=== PATIENT | male | born 1990 | race Caucasian/White ===

== ENCOUNTER 2018-09-17 08:50 | Emergency (ER) | payer SELFPAY ==
[2018-09-17] MEDS ORDERED: NORMAL SALINE 1000 ML 1,000 ML IV ONE (09:28)
--- NOTE | 2018-09-17 09:31 | ER Document Report ---
ED Medical Screen (RME) - General Chief Complaint: Abdominal Pain Stated Complaint: ANDOMINAL/PELVIC PAIN Time Seen by Provider: 09/17/18 09:26 TRAVEL OUTSIDE OF THE [place] IN LAST 30 DAYS: No - HPI Notes: 09/17/18 09:30 Obese male coming in with a history of diverticulitis states last flare 2 years ago today's symptoms similar - Related Data Allergies/Adverse Reactions: desvenlafaxine [From Pristiq] Allergy (Verified 09/17/18 08:52) quetiapine [From Seroquel] Allergy (Verified 09/17/18 08:52) Past Medical History - Social History Chew tobacco use (# tins/day): No Frequency of alcohol use: Occasional Drug Abuse: None Renal/ Medical History: Denies: Hx Peritoneal Dialysis Review of Systems - Review of Systems Gastrointestinal: Abdominal pain Physical Exam - Vital signs Vitals: Temp Pulse Resp BP Pulse Ox 98.7 F 93 18 166/100 H 97 09/17/18 08:57 09/17/18 08:57 09/17/18 08:57 09/17/18 08:57 09/17/18 08:57 - Respiratory Respiratory status: No respiratory distress Chest status: Nontender Breath sounds: Normal Chest palpation: Normal - Abdominal Inspection: Obese Course - Vital Signs Vital signs: Temp Pulse Resp BP Pulse Ox 98.7 F 93 18 166/100 H 97 09/17/18 08:57 09/17/18 08:57 09/17/18 08:57 09/17/18 08:57 09/17/18 08:57
[2018-09-17 10:05] LABS: ABSOLUTE BASOPHILS # (AUTO) 0.1 10^3/uL (0.0-0.2); ABSOLUTE EOSINOPHILS # (AUTO) 0.2 10^3/uL (0.0-0.6); ABSOLUTE LYMPHOCYTES (AUTO) 2.4 10^3/uL (0.5-4.7); ABSOLUTE NEUT (AUTO) 8.4 10^3/uL (1.7-8.2); BASOPHILS % (AUTO) 0.5 % (0-2); EOSINOPHILS % (AUTO) 1.9 % (0-6); HEMATOCRIT 45.5 % (37.9-51.0); HEMOGLOBIN 15.8 g/dL (13.5-17.0); MEAN CORPUSCULAR HEMOGLOBIN 30.8 pg (27.0-33.4); MEAN CORPUSCULAR HGB CONC 34.7 g/dL (32.0-36.0); MEAN CORPUSCULAR VOLUME 89 fl (80-97); MONOCYTES % (AUTO) 8.3 % (3-13); PLATELET COUNT 288 10^3/uL (150-450); RED BLOOD COUNT 5.13 10^6/uL (4.35-5.55); RED CELL DISTRIBUTION WIDTH 13.4 % (11.5-14.0); SEGMENTED NEUTROPHILS % (AUTO) 69.3 % (42-78); TOTAL CELLS COUNTED % (AUTO) 100 %; WHITE BLOOD COUNT 12.1 10^3/uL (4.0-10.5)
[2018-09-17 10:18] LABS: APPEARANCE,URINE SLIGHTLY-CLOUDY; BILIRUBIN,URINE NEGATIVE (NEGATIVE); COLOR,URINE YELLOW; GLUCOSE, URINE NEGATIVE (NEGATIVE); KETONES,URINE NEGATIVE (NEGATIVE); LEUKOCYTE ESTERASE,URINE SMALL (NEGATIVE); NITRITE,URINE NEGATIVE (NEGATIVE); PROTEIN,URINE NEGATIVE (NEGATIVE)
[2018-09-17] MEDS ORDERED: FENTANYL CITRATE INJ/PF 100 MCG/2 ML AMPUL IV ONE (10:23)
[2018-09-17] MEDS ORDERED: CIPROFLOXACIN 400 MG/D5W RTU 400 MG/200 ML RTUPB IV ONE (10:23)
[2018-09-17 10:25] LABS: ALANINE AMINOTRANSFERASE 20 U/L (21-72); ALBUMIN 4.1 g/dL (3.5-5.0); ALKALINE PHOSPHATASE 79 U/L (38-126); ANION GAP 9 (5-19); ASPARTATE AMINO TRANSFERASE 15 U/L (17-59); BILIRUBIN,DIRECT 0.2 mg/dL (0.0-0.4); BILIRUBIN,TOTAL 0.7 mg/dL (0.2-1.3); BLOOD UREA NITROGEN 9 mg/dL (7-20); CALCIUM 9.2 mg/dL (8.4-10.2); CARBON DIOXIDE 25 mmol/L (22-30); CHLORIDE 106 mmol/L (98-107); GLUCOSE 111 mg/dL (75-110); LIPASE 40.4 U/L (23-300); POTASSIUM 4.5 mmol/L (3.6-5.0); SODIUM 139.8 mmol/L (137-145); TOTAL PROTEIN 7.5 g/dL (6.3-8.2)
--- NOTE | 2018-09-17 10:29 | ER Document Report ---
ED General - General Chief Complaint: Abdominal Pain Stated Complaint: ABDOMINAL/PELVIC PAIN Time Seen by Provider: 09/17/18 09:26 Mode of Arrival: Ambulatory Information source: Patient TRAVEL OUTSIDE OF THE [place] IN LAST 30 DAYS: No - HPI Patient complains to provider of: abdominal pain Onset: Other - 28-year-old man with a past medical history significant for diverticulitis 3 times as well as atrial fibrillation for which he was treated via shock and subsequent rate regulation. Is not on any blood thinning medication currently presents for 2 days of abdominal pain in his left lower quadrant that he believes is her result of diverticulitis. His previous episode of diverticulitis requiring to be hospitalized for 3 days because he was febrile feeling much worse. He endorses some looser stools than usual without any blood, is going to the bathroom okay otherwise, has felt some nausea without any episodes of emesis. Nothing is seem to help with this pain, time seems to be making it worse. He just moved to the area so does not have any physician to help care for him locally. - Related Data Allergies/Adverse Reactions: desvenlafaxine [From Pristiq] Allergy (Verified 09/17/18 09:31) quetiapine [From Seroquel] Allergy (Verified 09/17/18 09:31) Past Medical History - General Information source: Patient - Social History Smoking Status: Current Every Day Smoker Chew tobacco use (# tins/day): No Frequency of alcohol use: Occasional Drug Abuse: None Family History: None Patient has suicidal ideation: No Patient has homicidal ideation: No - Past Medical History Cardiac Medical History: Reports: Hx Atrial Fibrillation Renal/ Medical History: Denies: Hx Peritoneal Dialysis Past Surgical History: Reports: Hx Appendectomy, Hx Cholecystectomy Review of Systems - Review of Systems -: Yes All other systems reviewed and negative Physical Exam - Vital signs Vitals: Temp Pulse Resp BP Pulse Ox 98.7 F 93 18 166/100 H 97 09/17/18 08:57 09/17/18 08:57 09/17/18 08:57 09/17/18 08:57 09/17/18 08:57 - General General appearance: Appears well In distress: None - HEENT Head: Normocephalic Eyes: Normal Conjunctiva: Normal Cornea: Normal Extraocular movements intact: Yes Eyelashes: Normal Pupils: PERRL - Respiratory Respiratory status: No respiratory distress Chest status: Nontender Breath sounds: Normal Chest palpation: Normal - Cardiovascular Rhythm: Regular Heart sounds: Normal auscultation Murmur: No - Abdominal Inspection: Normal Distension: No distension Tenderness: Rebound - Tenderness in the left lower quadrant with rebound - Back Back: Normal - Extremities General upper extremity: Normal inspection, Nontender, Normal strength, Normal temperature General lower extremity: Normal inspection, Nontender, Normal strength, Normal temperature - Neurological Neuro grossly intact: Yes Cognition: Normal Orientation: AAOx4 [place] Coma Scale Eye Opening: Spontaneous [place] Coma Scale Verbal: Oriented [place] Coma Scale Motor: Obeys Commands [place] Coma Scale Total: 15 Speech: Normal Cranial nerves: Normal Cerebellar coordination: Normal Motor strength normal: LUE, RUE, LLE, RLE - Psychological Associated symptoms: Normal affect Course - Re-evaluation Re-evalutation: 09/17/18 10:34 28-year-old man with a history of diverticulitis in the past presents for evaluation of pain in the left lower quadrant. He does have rebound, no obvious peritonitis though because of his morbid obesity his abdominal exam is somewhat limited. Through triage patient had blood work ordered and fluids initiated, will administer antibiotics as well as analgesia. We will plan for CT the abdomen and pelvis 09/17/18 12:10 On reassessment this patient's pain is improved, he is received antibiotics through the IV, he is able tolerate p.o. His abdominal examination demonstrates some tenderness but without any concerning symptoms suggestive of peritonitis. Current plan will be for this patient to move forward with discharge with oral antibiotics. He will follow-up and upon any worsening return to the emergency room. He is in agreement this current course of action at this time, says i not as bad as previously. - Vital Signs Vital signs: Temp Pulse Resp BP Pulse Ox 98.7 F 93 18 166/100 H 97 09/17/18 08:57 09/17/18 08:57 09/17/18 08:57 09/17/18 08:57 09/17/18 08:57 - Laboratory Result Diagrams: 09/17/18 09:52 09/17/18 09:52 Laboratory results interpreted by me: 09/17/18 09/17/18 09/17/18 09:52 09:52 09:52 WBC 12.1 H Absolute Neutrophils 8.4 H Glucose 111 H AST 15 L ALT 20 L Urine Urobilinogen 2.0 H Ur Leukocyte Esterase SMALL H Discharge - Discharge Clinical Impression: Diverticulitis Abdominal pain Qualifiers: Abdominal location: generalized Qualified Code(s): R10.84 - Generalized abdominal pain Condition: Good Disposition: HOME, SELF-CARE Instructions: Ciprofloxacin (OM), Diverticulitis (OM), Metronidazole (OM), Oral Narcotic Medication (OM) Prescriptions: Ciprofloxacin HCl [Cipro 500 mg Tablet] 500 mg PO BID #20 tablet Hydrocodone/Acetaminophen [[place] 5-325 mg Tablet] 1 tab PO Q12 PRN #15 tablet PRN Reason: Metronidazole [Flagyl 500 mg Tablet] 500 mg PO Q6H #40 tablet Forms: Elevated Blood Pressure
[2018-09-17] MEDS ORDERED: METRONIDAZOLE 500 MG/NS RTU 500 MG/100 ML RTUPB IV ONE (11:00)
--- NOTE | 2018-09-17 11:52 | RADIOLOGY REPORT (SQ) ---
EXAM DESCRIPTION: CT ABD/PELVIS WITH IV ONLY COMPLETED DATE/TIME: 09/17/2018 10:58 am REASON FOR STUDY: concern for perforated diverticula COMPARISON: None. TECHNIQUE: CT scan of the abdomen and pelvis performed using helical scanning technique with dynamic intravenous contrast injection. No oral contrast. Images reviewed with lung, soft tissue, and bone windows. Reconstructed coronal and sagittal MPR images reviewed. Delayed images for evaluation of the urinary system also acquired. All images stored on PACS. All CT scanners at this facility use dose modulation, iterative reconstruction, and/or weight based d osing when appropriate to reduce radiation dose to as low as reasonably achievable (ALARA). [facility]: Dose Right [facility]: CareDose [facility]: Dose Right [facility]: Teradose 4D [facility]: Conversant Labs CONTRAST TYPE AND DOSE: contrast/concentration: Isovue 350.00 mg/ml; Total Contrast Delivered: 100.0 ml; Total Saline Delivered: 72.0 ml RENAL FUNCTION: GFR > 60. RADIATION DOSE: CT Rad equipment meets quality standard of care and radiation dose reduction techniq ues were employed. CTDIvol: 21.1 - 30.0 mGy. DLP: 3150 mGy-cm.. LIMITATIONS: None. FINDINGS: Distal descending colon/proximal sigmoid colon diverticulitis is present, with a 5 cm long segment of colon wall thickening and luminal narrowing with surrounding inflammatory change in the a djacent pericolic fat. No abscess. No definite free intraperitoneal air. These changes are best sh own on coronal images 34-42, and axial images 72-79. Remainder of the gastrointestinal tract is otherwise unremarkable. LOWER CHEST: Small hiatal hernia. . No nodules or infiltrates. LIVER: Fatty liver. No masses. No dilated ducts SPLEEN: Normal size. No focal lesions. PANCREAS: No masses. No significant calcifications. No adjacent inflammation or peripancreatic fluid collections. Pancreatic duct not dilated. GALLBLADDER: Surgically absent ADRENAL GLANDS: No significant masses or asymmetry. RIGHT KIDNEY AND URETER: No solid masses. No significant calcifications. No hydronephrosis or hyd roureter. LEFT KIDNEY AND URETER: No solid masses. No significant calcifications. No hydronephrosis or hydr oureter. AORTA AND VESSELS: No aneurysm. No dissection. Renal arteries, SMA, celiac without stenosis. RETROPERITONEUM: No retroperitoneal adenopathy, hemorrhage or masses. BOWEL AND PERITONEAL CAVITY: As above APPENDIX: Surgically absent PELVIS: No mass. No free fluid. Normal bladder. ABDOMINAL WALL: No masses. No hernias. BONES: No significant or acute findings. OTHER: No other significant finding. IMPRESSION: Distal descending colon/proximal sigmoid colon diverticulitis is present. No abscess. No free intraperitoneal air or fluid TECHNICAL DOCUMENTATION: JOB ID: [id number] Quality ID # [id number]: Final reports with documentation of one or more dose reduction techniques (e.g., Au tomated exposure control, adjustment of the mA and/or kV according to patient size, use of iterative reconstruction technique) 2010 [facility]- All Rights Reserved Reading location - IP/workstation name: [email or web address]
--- NOTE | 2018-09-17 13:09 | EKG REPORT ---
SEVERITY:- NORMAL ECG - SINUS RHYTHM : Confirmed by: Wili Schmitz MD 17-Sep-2018 13:08:22
[2018-09-17 13:55] VITALS: BP 149/92
== END 2018-09-17 13:45 | disposition home or self-care (01) ==
LOC: ER 08:50
DX: K57.92 Diverticulitis of intestine, part unspecified, without perforation or abscess without bleeding (principal); R10.84 Generalized abdominal pain; R10.2 Pelvic and perineal pain; R11.0 Nausea; I48.91 Unspecified atrial fibrillation; F17.200 Nicotine dependence, unspecified, uncomplicated; E66.01 Morbid (severe) obesity due to excess calories; Z90.49 Acquired absence of other specified parts of digestive tract
CPT/HCPCS: 93005; 99285; 96361; 96375; 96365; 96368; 36415; 87040; 83690; 85025; 80053; 81001; 74177; 93010; J3010; J7030; J0744

== ENCOUNTER 2018-10-30 17:14 | Emergency (ER) | payer SELFPAY ==
[2018-10-30] MEDS ORDERED: NORMAL SALINE 1000 ML 1,000 ML IV ONE (18:12)
--- NOTE | 2018-10-30 18:12 | ER Document Report ---
ED Medical Screen (RME) - General Chief Complaint: Chest Pain Stated Complaint: CHEST PAIN , DIZZY Time Seen by Provider: 10/30/18 18:07 Notes: Patient is a 28-year-old male with history of A. fib that presents to the emergency department for chief complaint of lightheadedness, nausea, feeling like he may pass out. He reports feeling off for the past few days, but it was much worse today so he decided come to the ED.. ROS: Other than noted above, the 12 point review of systems was reviewed with the patient and were negative, all pertinent findings are included in the HPI. PHYSICAL EXAMINATION: Vital signs reviewed. GENERAL: Obese male, in no acute distress. HEAD: Atraumatic, normocephalic. EYES: Pupils equal round extraocular movements intact, conjunctiva are normal. ENT: Nares patent NECK: Normal range of motion CV: Heart regular rate and rhythm LUNGS: No respiratory distress Musculoskeletal: Normal range of motion NEUROLOGICAL: Normal speech PSYCH: Normal mood, normal affect. MDM: Patient seen and examined for rapid initial assessment. Vital signs reviewed. A comprehensive ED assessment and evaluation of the patient, analysis of test results and completion of the medical decision making process will be conducted by additional ED providers. *Note is created using voice recognition software and may contain spelling, syntax or grammatical errors. TRAVEL OUTSIDE OF THE [place]. IN LAST 30 DAYS: No - Related Data Allergies/Adverse Reactions: desvenlafaxine [From Pristiq] Allergy (Verified 09/17/18 09:31) quetiapine [From Seroquel] Allergy (Verified 09/17/18 09:31) Past Medical History - Past Medical History Cardiac Medical History: Reports: Hx Atrial Fibrillation Renal/ Medical History: Denies: Hx Peritoneal Dialysis Past Surgical History: Reports: Hx Appendectomy, Hx Cholecystectomy Physical Exam - Vital signs Vitals: Temp Pulse Resp BP Pulse Ox 99.0 F 82 17 145/92 H 96 10/30/18 17:44 10/30/18 17:44 10/30/18 17:44 10/30/18 17:44 10/30/18 17:44 Course - Vital Signs Vital signs: Temp Pulse Resp BP Pulse Ox 99.0 F 82 17 145/92 H 96 10/30/18 17:44 10/30/18 17:44 10/30/18 17:44 10/30/18 17:44 10/30/18 17:44
--- NOTE | 2018-10-30 18:32 | RADIOLOGY REPORT (SQ) ---
EXAM DESCRIPTION: CHEST SINGLE VIEW COMPLETED DATE/TIME: 10/30/2018 6:22 pm REASON FOR STUDY: chest pain COMPARISON: None. EXAM PARAMETERS: NUMBER OF VIEWS: One view. TECHNIQUE: Single frontal radiographic view of the chest acquired. RADIATION DOSE: NA LIMITATIONS: None. FINDINGS: LUNGS AND PLEURA: No opacities, masses or pneumothorax. No pleural effusion. MEDIASTINUM AND HILAR STRUCTURES: No masses. Contour normal. HEART AND VASCULAR STRUCTURES: Heart normal in size. Normal vasculature. BONES: No acute findings. HARDWARE: None in the chest. OTHER: No other significant finding. IMPRESSION: NO ACUTE RADIOGRAPHIC FINDING IN THE CHEST. TECHNICAL DOCUMENTATION: JOB ID: [id number] [employer]- All Rights Reserved Reading location - IP/workstation name: [email or web address]
[2018-10-30 18:48] LABS: ABSOLUTE BASOPHILS # (AUTO) 0.1 10^3/uL (0.0-0.2); ABSOLUTE EOSINOPHILS # (AUTO) 0.3 10^3/uL (0.0-0.6); ABSOLUTE LYMPHOCYTES (AUTO) 2.8 10^3/uL (0.5-4.7); ABSOLUTE MONOCYTES (AUTO) 0.7 10^3/uL (0.1-1.4); ABSOLUTE NEUT (AUTO) 5.4 10^3/uL (1.7-8.2); BASOPHILS % (AUTO) 1.2 % (0-2); EOSINOPHILS % (AUTO) 3.7 % (0-6); HEMATOCRIT 47.8 % (37.9-51.0); HEMOGLOBIN 16.7 g/dL (13.5-17.0); LYMPHOCYTES % (AUTO) 30.1 % (13-45); MEAN CORPUSCULAR HEMOGLOBIN 30.9 pg (27.0-33.4); MEAN CORPUSCULAR VOLUME 89 fl (80-97); MONOCYTES % (AUTO) 7.6 % (3-13); PLATELET COUNT 300 10^3/uL (150-450); RED CELL DISTRIBUTION WIDTH 13.5 % (11.5-14.0); SEGMENTED NEUTROPHILS % (AUTO) 57.4 % (42-78); TOTAL CELLS COUNTED % (AUTO) 100 %; WHITE BLOOD COUNT 9.4 10^3/uL (4.0-10.5)
[2018-10-30 18:54] LABS: APPEARANCE,URINE CLEAR; BILIRUBIN,URINE NEGATIVE (NEGATIVE); COLOR,URINE YELLOW; GLUCOSE, URINE NEGATIVE (NEGATIVE); KETONES,URINE NEGATIVE (NEGATIVE); LEUKOCYTE ESTERASE,URINE TRACE (NEGATIVE); NITRITE,URINE NEGATIVE (NEGATIVE); PROTEIN,URINE NEGATIVE (NEGATIVE); URINE SPECIFIC GRAVITY 1.014
[2018-10-30 19:07] LABS: ALANINE AMINOTRANSFERASE 27 U/L (21-72); ALBUMIN 4.5 g/dL (3.5-5.0); ALKALINE PHOSPHATASE 93 U/L (38-126); ANION GAP 13 (5-19); ASPARTATE AMINO TRANSFERASE 26 U/L (17-59); BILIRUBIN,DIRECT 0.4 mg/dL (0.0-0.4); BILIRUBIN,TOTAL 0.7 mg/dL (0.2-1.3); BLOOD UREA NITROGEN 9 mg/dL (7-20); CALCIUM 9.7 mg/dL (8.4-10.2); CARBON DIOXIDE 26 mmol/L (22-30); CHLORIDE 106 mmol/L (98-107); CREATINE KINASE 82 U/L (55-170); GLUCOSE 92 mg/dL (75-110); POTASSIUM 4.8 mmol/L (3.6-5.0); SODIUM 144.5 mmol/L (137-145)
--- NOTE | 2018-10-30 19:27 | ER Document Report ---
ED General - General Mode of Arrival: Ambulatory Information source: Patient TRAVEL OUTSIDE OF THE [place] IN LAST 30 DAYS: No <ROLLY CONDE - Last Filed: 10/30/18 23:07> <MORIS KUO - Last Filed: 10/30/18 23:28> - General Chief Complaint: Chest Pain Stated Complaint: CHEST PAIN , DIZZY Time Seen by Provider: 10/30/18 18:07 Notes: 28-year-old male who presents to the emergency department today with complaints of dizziness and lightheadedness for the last few days with associated chest pain. Patient states it feels like someone is "sitting on his chest". Patient has a history of SVT and A. fib. Patient states most of his pain is located in his head as he has a "throbbing headache". Patient has had a cough. Patient does smoke 1 pack/day. Patient denies any leg swelling, history of PE/DVT, fevers, nausea, or vomiting. (ROLLY CONDE) - Related Data Allergies/Adverse Reactions: desvenlafaxine [From Pristiq] Allergy (Verified 09/17/18 09:31) quetiapine [From Seroquel] Allergy (Verified 09/17/18 09:31) Past Medical History - General Information source: Patient - Social History Smoking Status: Current Every Day Smoker Cigarette use (# per day): Yes - 1 ppd Chew tobacco use (# tins/day): No Frequency of alcohol use: Social Drug Abuse: None Family History: None Patient has suicidal ideation: No Patient has homicidal ideation: No - Past Medical History Cardiac Medical History: Reports: Hx Atrial Fibrillation Past Surgical History: Reports: Hx Appendectomy, Hx Cholecystectomy <ROLLY CONDE - Last Filed: 10/30/18 23:07> Review of Systems - Review of Systems Constitutional: denies: Fever EENT: No symptoms reported Cardiovascular: See HPI, Dizziness, Lightheaded Respiratory: See HPI, Cough Gastrointestinal: denies: Nausea, Vomiting Genitourinary: No symptoms reported Male Genitourinary: No symptoms reported Musculoskeletal: denies: Leg swelling Skin: No symptoms reported Hematologic/Lymphatic: No symptoms reported Neurological/Psychological: See HPI, Headaches -: Yes All other systems reviewed and negative <ROLLY CONDE - Last Filed: 10/30/18 23:07> Physical Exam <ROLLY CONDE - Last Filed: 10/30/18 23:07> <MORIS KUO - Last Filed: 10/30/18 23:28> - Vital signs Vitals: Temp Pulse Resp BP Pulse Ox 99.0 F 82 17 145/92 H 96 10/30/18 17:44 10/30/18 17:44 10/30/18 17:44 10/30/18 17:44 10/30/18 17:44 - Notes Notes: Physical Exam: General: Alert, appears well. HEENT: Normocephalic. Atraumatic. PERRL. Extraocular movements intact. Oropharynx clear. Neck: Supple. Non-tender. Respiratory: No respiratory distress. Clear and equal breath sounds bilaterally. Cardiovascular: Regular rate and rhythm. Abdominal: Obese. Non-tender. No distension. Normal Bowel Sounds. Back: Non-tender. No deformity or step off. Extremities: Moves all four extremities. Upper extremities: Normal inspection. Normal ROM. Lower extremities: Normal inspection. No edema. Normal ROM. Neurological: Normal cognition. AAOx4. Normal speech. Psychological: Normal affect. Normal Mood. Skin: Warm. Dry. Normal color. (ROLLY CONDE) Course - Laboratory Result Diagrams: 10/30/18 18:21 10/30/18 18:21 <ROLLY CONDE - Last Filed: 10/30/18 23:07> - Laboratory Result Diagrams: 10/30/18 18:21 10/30/18 18:21 - Diagnostic Test Radiology reviewed: Reports reviewed - EKG Interpretation by Me EKG shows normal: Sinus rhythm <MORIS KUO - Last Filed: 10/30/18 23:28> - Re-evaluation Re-evalutation: 10/30/18 Patient is 28 years old with a history of SVT and A. fib who comes in complaining of chest pressure and also a headache. Patient is obese, smokes, and recently came from [place]. D-dimer is negative. Troponin is negative. EKG showing a normal sinus rhythm in the 80s. Patient states that he knows that it is not his heart and he is upset that I have wasted his time in the emergency department. I have given him information for a primary care doctor and also cardiology to follow-up with as he does not have anyone established here. Patient would like to leave. States that he does not have any problem with his heart that is not when he came in. Stable for discharge. Return if any worsening or concerning symptoms. (MORIS KUO) - Vital Signs Vital signs: Temp Pulse Resp BP Pulse Ox 98.4 F 64 15 144/92 H 95 10/30/18 22:16 10/30/18 22:16 10/30/18 22:16 10/30/18 22:16 10/30/18 22:16 - Laboratory Laboratory results interpreted by me: 10/30/18 18:21 Urine Urobilinogen 2.0 H Ur Leukocyte Esterase TRACE H Discharge <ROLLY CONDE - Last Filed: 10/30/18 23:07> <MORIS KUO - Last Filed: 10/30/18 23:28> - Discharge Clinical Impression: Near syncope Condition: Stable Disposition: HOME, SELF-CARE Instructions: Family Physicians / Practices, Near Syncopal Episode ([facility]) Additional Instructions: Please follow-up with a primary care doctor and a braid maker when you are able. Please return if you have any worsening or concerning symptoms. Forms: Return to Work Scribe Attestation: 10/30/18 23:28 I personally performed the services described in the documentation, reviewed and edited the documentation which was dictated to the scribe in my presence, and it accurately records my words and actions. (MORIS KUO) Scribe Documentation - Scribe Written by Breana:: Breana Jose, 10/[id number]/20182001 acting as scribe for :: Ángel <ROLLY CONDE - Last Filed: 10/30/18 23:07>
--- NOTE | 2018-10-30 21:00 | EKG REPORT ---
SEVERITY:- NORMAL ECG - SINUS RHYTHM : Confirmed by: Wili Schmitz MD 30-Oct-2018 20:59:53
[2018-10-30] MEDS ORDERED: PROCHLORPERAZINE EDISYLATE INJ 10 MG/2 ML VIAL IV ONE (21:22)
[2018-10-30] MEDS ORDERED: DIPHENHYDRAMINE HCL 50 MG/ML VIAL IV ONE (21:22)
[2018-10-30 22:17] VITALS: BP 144/92
== END 2018-10-30 22:22 | disposition home or self-care (01) ==
LOC: ER 17:14
DX: R55 Syncope and collapse (principal); R07.9 Chest pain, unspecified; R42 Dizziness and giddiness; I48.91 Unspecified atrial fibrillation; F17.210 Nicotine dependence, cigarettes, uncomplicated; Z90.49 Acquired absence of other specified parts of digestive tract
CPT/HCPCS: 93005; 99284; 96361; 96374; 96375; 36415; 82550; 85025; 80053; 81001; 84484; 85379; 71045; 93010; J1200; J0780; J7030